=== PATIENT | female | born 1965 | race African-American/Black ===

== ENCOUNTER 2020-09-10 15:05 | Outpatient (CLI) | payer MEDICARE, MEDICAID | END 2020-09-10 15:06 | disposition home or self-care (01) | LOC: CSHMRI 15:05 | PROVIDERS: ATTEND Psychiatry & Neurology Neurology | DX: G43.019 Migraine without aura, intractable, without status migrainosus (principal); Z95.810 Presence of automatic (implantable) cardiac defibrillator | CPT/HCPCS: 70553; 71045 ==

== ENCOUNTER 2021-09-22 11:36 | Outpatient (CLI) | payer MEDICARE, MEDICAID | END 2021-09-22 11:37 | disposition home or self-care (01) | LOC: CSHWCC 11:36 | PROVIDERS: ATTEND Nurse Practitioner Family | DX: T21.21XD Burn of second degree of chest wall, subsequent encounter (principal) | CPT/HCPCS: 97139; G0463; 99203 ==

== ENCOUNTER 2021-09-29 10:32 | Outpatient (CLI) | payer MEDICARE, MEDICAID | END 2021-09-29 10:33 | disposition home or self-care (01) | LOC: CSHWCC 10:32 | PROVIDERS: ATTEND Nurse Practitioner Family | DX: T21.21XD Burn of second degree of chest wall, subsequent encounter (principal) | CPT/HCPCS: 97139; G0463; 99212 ==

== ENCOUNTER 2022-12-30 08:39 | Outpatient (CLI) | payer MEDICARE, OTHER ==
[2022-12-30 11:15] VITALS: BMI 20.5
[2022-12-30 12:09] VITALS: BP 102/56; TEMP 98.7
[2022-12-30 12:10] LABS: CSF, Glucose 58 mg/dl (40-70); CSF, Protein 24 mg/dL (15-40)
[2022-12-30] MEDS ORDERED: Iopamidol 370 76% 100 ML VIAL ONE (12:14)
[2022-12-30 12:55] LABS: CSF Source CSF; Clarity Clear (Clear); Tube # 1
[2022-12-30 12:56] LABS: CSF RBC Count - Manual 0 /cu.mm (None Seen); CSF WBC/NonHematics Count-Man 0 /cu.mm (0-5)
== END 2022-12-30 08:40 | disposition home or self-care (01) ==
LOC: CSHCT 08:39
PROVIDERS: ATTEND Psychiatry & Neurology Neurology
DX: R51.9 Headache, unspecified (principal); R93.89 Abnormal findings on diagnostic imaging of other specified body structures; I77.89 Other specified disorders of arteries and arterioles
CPT/HCPCS: 62270; 70496; 82945; 84157; 86592; 86612; 86635; 86698; 87529; 87899; 89051; Q9967